=== PATIENT | male | born 1985 | race Caucasian/White ===

== ENCOUNTER 2016-08-12 01:52 | Emergency (ER) | payer SELFPAY ==
[~2016-08-12] VITALS: Ht 172.7 cm; Wt 90.5 kg
[2016-08-12] MEDS ORDERED: ONDANSETRON HCL 4 MG TABLET PO ONE (03:15)
[2016-08-12] MEDS ORDERED: PROMETHAZINE HCL 50 MG/ML VIAL IM ONE (03:45)
[2016-08-12] MEDS ORDERED: GELATIN SPONGE,ABSORBABLE 100 MM TP ONE (04:00)
[2016-08-12] MEDS ORDERED: SODIUM CHLORIDE 0.9% 1,000 ML IV ONE ×2 (06:30)
[2016-08-12 06:45] VITALS: BP 131/65
== END 2016-08-12 07:58 | disposition home or self-care (01) ==
LOC: EMS 01:53
DX: K91.840 Postprocedural hemorrhage of a digestive system organ or structure following a digestive system procedure (principal)
CPT/HCPCS: 96360; 96361; 96372; 99284; J2550; J7030; Q0162